=== PATIENT | female | born 1980 | race Caucasian/White ===

== ENCOUNTER 2018-07-20 09:08 | Observation (INO) ==
[2018-07-20 12:05] LABS: INR 0.97; PROTIME 13.7 Seconds (11.0-16.0)
[2018-07-20 12:21] LABS: AGAP 10; ALB/GLOB RATIO 1.4; ALBUMIN 4.1 g/dL (3.5-5.0); ALKALINE PHOSPHATASE 109 U/L (32-104); BASO# 0.08 X1000 (0.0-0.2); BASO% 0.8 % (0.0-0.8); BUN 7 mg/dL (8-22); CALCIUM 9.3 mg/dL (8.8-10.2); CHLORIDE 99 mmol/L (98-107); COSMO 269; CREATININE 0.7 mg/dL (0.5-0.9); EOS# 0.16 X1000 (0.0-0.7); EOS% 1.7 % (0.0-10.0); ESTIMATED GFR > 60; GLUCOSE 86 mg/dL (70-104); GOT 13 U/L (10-30); GPT 17 U/L (10-36); LYMPH% 33.2 % (20.5-51.1); MCH 31.3 PG (27-31); MCHC 31.9 g/dL (33-37); MCV 98.2 FL (81-99); MONO# 0.49 X1000 (0.11-0.59); MONO% 5.1 % (1.7-9.3); MPV 8.8 FL (7.4-10.4); NEUT% 59.2 % (42.2-75.2); POTASSIUM 4.2 mmol/L (3.5-5.1); RBC 1.63 XMIL (4.2-5.4); RDW 19.3 % (11.5-14.5); SODIUM 136 mmol/L (136-145); TCO2 27 mmol/L (25-35); TOTAL BILIRUBIN 0.43 mg/dL (0.20-1.00); TOTAL PROTEIN 7.1 g/dL (6.3-8.3); WBC 9.63 X1000 (4.8-10.8)
[2018-07-20 12:25] LABS: HEMOGLOBIN 5.1 g/dL (12.0-16.0); PLT 1098 X1000 (130-400)
[2018-07-20] MEDS ORDERED: PEPCID IV ONE (12:30)
[2018-07-20] MEDS ORDERED: ATIVAN IV ONE (12:30)
[2018-07-20] MEDS ORDERED: TYLENOL PO ONE (12:30)
[2018-07-20 12:32] LABS: EOS 2 % (1-10); LYMPHS 30 % (21-51); MONO 2 % (1-9); SEGS 66 % (42-75)
[2018-07-20 12:47] LABS: FREE T4 0.95 ng/dL (0.93-1.70); TSH 1.54 uIUmL (0.27-4.20)
[2018-07-20 12:50] LABS: RETIC% 0.17 % (0.8-2.1)
[2018-07-20] MEDS ORDERED: GAMUNEX C IV ONE (13:00)
[2018-07-20] MEDS ORDERED: DILUENT IV ONE (13:00)
[2018-07-20 14:00] LABS: TIBC 226 ug/dL; TOTAL IRON 211 ug/dL (49-151); UNBOUND IRON 15 ug/dL (112-346)
[2018-07-20 14:01] LABS: IRON SATURATION 98 %
--- NOTE | 2018-07-20 14:11 | HISTORY AND PHYSICAL ---
ONCOLOGIST: Grey Reyna MD. CHIEF COMPLAINT: Fatigue and anemia. HISTORY OF PRESENT ILLNESS: Ms. Rajan is a 38-year-old female with a history of hypertension, hyperlipidemia, and anemia and thrombocytosis possibly secondary to parvovirus per the patient's report. She is followed by Dr. Reyna and has been getting blood transfusions and IVIG transfusions over the past 8 months. She comes in today with malaise and anemia with a hemoglobin of 5.1 and a platelet count of 1098. She is scheduled for IVIG transfusion as well as blood transfusion. Her only complaints are dyspnea on exertion as well as some sinus drainage, she reports being on 3 different rounds of antibiotics for a sinus infection over the past few weeks. She is hemodynamically stable and will be admitted for further treatment and evaluation. PAST MEDICAL HISTORY: 1. Chronic anemia as well as thrombocytosis believed to be secondary to parvovirus per patient report, she is followed by Dr. Reyna and has had a bone marrow biopsy that did not show any suspicion for myeloproliferative disease or malignancy. 2. History of colon cancer status post resection. 3. Hypertension. 4. Hyperlipidemia. 5. Nicotine dependence. 6. Anxiety and depression. PAST SURGICAL HISTORY: She has had a hysterectomy, partial colon resection, bone marrow biopsy, right shoulder surgery. SOCIAL HISTORY: She smokes half a pack a day. She drinks socially. Denies illicit drug use. She is single, does not have any children. She is currently employed at a local [employer]. FAMILY HISTORY: Both parents alive, both with high blood pressure, diabetes. REVIEW OF SYSTEMS: A 14-point review of systems obtained and found to be negative with the exception of the HPI. ALLERGIES: Ant bites. HOME MEDICATIONS: 1. Avapro 150 mg at bedtime. 2. B12 2500 mcg sublingual daily. 3. Cymbalta 60 mg b.i.d. 4. Azelastine fluticasone nasal spray 2 sprays nasally b.i.d. 5. Lipitor 20 mg daily. 6. Toprol XL 25 mg p.o. b.i.d. 7. Vitamin C 1000 mg p.o. daily. PHYSICAL EXAMINATION: VITAL SIGNS: Blood pressure is 127/71, heart rate is 90, respiratory rate 16, O2 saturation 99% on room air, temperature is 99.1. GENERAL: This is a well-developed well-nourished female lying the hospital bed in no acute distress. NEUROLOGICAL: Awake, alert, and oriented. Follows command without focal deficits. HEENT: Head is atraumatic and normocephalic. Her pupils are equal, round, and reactive to light. Oral mucosa is moist. NECK: Trachea is midline. There is no JVD. CHEST: Clear to auscultation. CARDIOVASCULAR: Regular rate and rhythm. S1 and S2 is noted. There are no murmurs. GASTROINTESTINAL: Soft, nondistended, nontender. Bowel sounds positive. EXTREMITIES: Without edema, clubbing, or cyanosis. Pulses 2+ bilaterally. DIAGNOSTIC DATA: WBC 9.63, hemoglobin 5.1, hematocrit 16, platelet count 1098. INR 0.97. Sodium 136, potassium 4.2, chloride 99, CO2 27, anion gap 10, BUN 7, creatinine 0.7, glucose 86, calcium 9.3, magnesium 2. LFTs negative. Alkaline phosphatase 109. Protein 7.1. Albumin 4.1. ASSESSMENT AND PLAN: 1. Severe symptomatic Anemia and thrombocytosis: She will be getting IVIG and blood transfusion per Dr. Reyna. Will monitor her response and check a CBC in the morning. 2. Dyspnea: Likely a combination of anemia and nicotine use. We will check chest x-ray, EKG, and monitor her on telemetry. She denies any chest pain. 3. Sinus infection. The patient reports sinus drainage and stuffiness. Will continue her home medications, hold off on any antibiotics. She reports of being on multiple rounds of antibiotics. Chest x-ray is pending as well. 4. Hypertension, stable. Continue home medications. 5. Anxiety and depression: Stable. Continue home medications. 6. Hyperlipidemia: Stable. Continue home medications. 7. Nicotine dependence: We have advised the patient strongly against the use of nicotine products. Will provide a nicotine patch, continue cessation education. 8. Deep venous thrombosis prophylaxis not indicated. She is a low risk and ambulatory. Dictated by VALERI Massey for Orion Cotton MD cc: VALERI Massey MD Sammy Becdach, MD I agree with most components of history, physical, assessment and plan. A separate addendum has been dictated. EILEEN
[2018-07-20] MEDS ORDERED: NS 500 ML IV SCH (15:15)
--- NOTE | 2018-07-20 15:50 | HISTORY AND PHYSICAL ---
I agree with most components of history, physical, assessment, and plan. I went to bedside, evaluated the patient by myself. 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 SUBJECTIVE: Patient is feeling very weak. Denies any chest pain, shortness of breath at rest, or abdominal pain. She denies noticing any blood in the stool. We discussed about getting further infectious workup, including hepatitis and HIV and she is in agreement. We discussed about her clinical condition, possible differential, and answered all of her questions. She also has past history of premature ovarian failure. VITALS: Currently, temperature 99.1 degrees, pulse 90, respiratory rate 16, blood pressure 127/71, saturating 98% on room air. PHYSICAL EXAMINATION: HEENT: The patient has oral and conjunctival pallor. CARDIOVASCULAR: She appears tachycardic with heart rate 96 per minute. There is a systolic flow murmur at base of the heart without any radiation. LUNGS: Air entry bilaterally equal. No wheeze, rhonchi, or crackles. ABDOMEN: Soft, nontender. No hepatosplenomegaly. EXTREMITIES: She has bilateral lower extremity edema extending up to mid oneill levels. LABORATORY DATA: Labs are significant for hemoglobin of 5.1, platelet count of 1098, and reticulocyte count of 0.17. Normal kidney function. Iron studies suggestive of no iron deficiency. ASSESSMENT: 1. 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 2. History of bleeding colonic polyps status post polypectomy. Turned out to be stage III colon cancer. Did not require any colectomy or radiation or chemotherapy. 3. Positive direct antiglobulin test. Plan: I will transfuse patient 3 units as suggested by Hematology. We will keep a close eye over her breathing status. She also has hemoglobin deficiency for which hematology has ordered immunoglobulins. 4. Other: History of hyperlipidemia, chronic pain, essential hypertension. I will continue home medications. Plan of care discussed with the patient. All of her questions have been answered . cc: Orion Cotton MD
[2018-07-20] MEDS: NICODERM PATCH TD SCH (18:30)
--- NOTE | 2018-07-20 18:55 | Diag Imaging Result Doc PS360 ---
EXAM: CHEST-PORTABLE 07/20/2018 HISTORY: dyspnea TECHNIQUE: AP portable at 1848 COMMENT: There are no previous studies. There is no evidence of focal pulmonary opacity and the heart and pulmonary vascularity are within normal limits. IMPRESSION: No evidence of acute disease. Electronically signed by Phillip Jay 07/20/2018 6:53 PM
[2018-07-20] MEDS ORDERED: AVAPRO PO SCH (21:00)
[2018-07-20] MEDS: CYMBALTA PO SCH (21:15)
[2018-07-20] MEDS: TOPROL XL PO SCH (21:15)
[2018-07-20] MEDS: PATIENT'S OWN MED NAS SCH (21:18)
[2018-07-21 03:58] LABS: HIV ANTIBODY SCREEN SEE COMMENTS
[2018-07-21] MEDS ORDERED: NS 500 ML ONE (05:54)
[2018-07-21] MEDS: CYMBALTA PO SCH (08:57)
[2018-07-21] MEDS: TOPROL XL PO SCH (08:57)
[2018-07-21] MEDS: NICODERM PATCH TD SCH (08:57)
[2018-07-21] MEDS: PATIENT'S OWN MED NAS SCH (08:58)
[2018-07-21] MEDS ORDERED: LIPITOR PO SCH (09:00)
[2018-07-21] MEDS ORDERED: VITAMIN C PO SCH (09:00)
[2018-07-21] MEDS ORDERED: NORCO-10 PO PRN (11:37)
[2018-07-21] MEDS ORDERED: VITAMIN B-12 SL SCH (11:45)
[2018-07-21 12:47] LABS: HEPATITIS PROFILE ACUTE SEE COMMENTS
[2018-07-21 12:48] LABS: BASO# 0.08 X1000 (0.0-0.2); BASO% 0.8 % (0.0-0.8); EOS# 0.21 X1000 (0.0-0.7); EOS% 2.1 % (0.0-10.0); HEMATOCRIT 21.3 % (37.0-47.0); HEMOGLOBIN 6.9 g/dL (12.0-16.0); IMM GRAN# 0.03 X1000 (0.0-0.04); IMM GRAN% 0.3 % (0.0-0.5); LYMPH# 2.11 X1000 (1.2-3.4); LYMPH% 21.2 % (20.5-51.1); MCH 31.1 PG (27-31); MCHC 32.4 g/dL (33-37); MCV 95.9 FL (81-99); MONO# 0.88 X1000 (0.11-0.59); MONO% 8.8 % (1.7-9.3); MPV 8.7 FL (7.4-10.4); NEUT# 6.66 X1000 (1.4-6.5); NEUT% 66.8 % (42.2-75.2); PLT 899 X1000 (130-400); RBC 2.22 XMIL (4.2-5.4); RDW 18.2 % (11.5-14.5); WBC 9.97 X1000 (4.8-10.8)
[2018-07-21 13:16] LABS: AGAP 7; ALB/GLOB RATIO 0.8; ALBUMIN 3.5 g/dL (3.5-5.0); ALKALINE PHOSPHATASE 91 U/L (32-104); BUN 11 mg/dL (8-22); CALCIUM 8.5 mg/dL (8.8-10.2); CHLORIDE 100 mmol/L (98-107); COSMO 265; CREATININE 0.7 mg/dL (0.5-0.9); ESTIMATED GFR > 60; GLUCOSE 87 mg/dL (70-104); GOT 10 U/L (10-30); GPT 12 U/L (10-36); MAGNESIUM 1.9 mg/dL (1.5-2.7); POTASSIUM 3.9 mmol/L (3.5-5.1); SODIUM 133 mmol/L (136-145); TCO2 26 mmol/L (25-35); TOTAL BILIRUBIN 0.52 mg/dL (0.20-1.00)
[2018-07-21 13:20] LABS: EOS 2 % (1-10); LYMPHS 25 % (21-51); MONO 9 % (1-9); OVALOCYTES OCCASIONAL; SEGS 62 % (42-75)
[2018-07-21 13:23] LABS: STOMATOCYTES 1+
[2018-07-21 15:32] VITALS: BP 115/51
--- NOTE | 2018-07-22 08:27 | DISCHARGE SUMMARY ---
ADMISSION DATE: 07/20/2018 DISCHARGE DATE: 07/21/2018 DISCHARGE DIAGNOSES: 1. Severe symptomatic anemia. 2. 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 3. Thrombocytosis. OTHER DIAGNOSES: 1. History of bleeding colonic polyp status post polypectomy in the past which turned out to be a stage III colon cancer which did not require any colectomy or radiation or chemotherapy as per the patient. 2. History of recurrent severe anemia requiring multiple blood transfusion outpatient settings, thought to be secondary to parvovirus B19 infection as the bone marrow had decreased erythroblastic population. It was hypocellular, though it had increased number of megakaryocyte. 3. Positive direct antiglobulin test in the setting of multiple blood transfusions. 4. History of essential hypertension. 5. History of hyperlipidemia. 6. History of nicotine and tobacco abuse. 7. History of anxiety and depression. DISCHARGE MEDICATIONS: 1. Irbesartan 150 mg at nighttime. 2. Vitamin B12, 5000 mcg 25 mcg sublingual daily. 3. Duloxetine 60 mg b.i.d. as the last day and fluticasone 23 g spray 2 spray nasal b.i.d. 4. Hydrocodone acetaminophen 10 mg 325 mg 1 tablet p.o. b.i.d. p.r.n. 5. Atorvastatin 20 mg daily. 6. Metoprolol 25 mg b.i.d. 7. Ascorbic acid 1000 mg p.o. daily. PHYSICAL EXAMINATION: Vital signs: At the time of discharge, temperature 99.3 degrees, pulse 88, respiratory rate 16, blood pressure 115/51, saturating 93% on room air. General: The patient does not appear in any acute distress. Oral cavity is moist. Lungs: Air entry bilaterally equal. No wheeze, rhonchi, crackles. Cardiovascular: S1, S2 normal. No murmur, rub, or gallop. Abdomen: Soft, nontender. She has mild bilateral lower extremities edema. SIGNIFICANT LABORATORY DATA DURING HOSPITALIZATION: WBC is 9.9, her hemoglobin was 5.1 on presentation, which after 2 blood transfusion had increased to 6.9. The patient was receiving an additional 3rd unit of transfusion, her platelet count was 899,000. She had electrolytes in acceptable range with normal kidney function. IMAGING: During hospital admission, chest x-ray did not detect any acute disease. HOSPITAL COURSE SUMMARY: Ms. Rajan is a 38-year-old lady with above mentioned past medical history of severe anemia since October 2017, who had seen Dr. Reyna an outpatient and was found to have severe anemia with hemoglobin of 5.1, and she was advised to go to the hospital for getting blood transfusions. Apparently, patient was diagnosed to have severe anemia in October 2017 and multiple investigation including HIV panel, hepatitis panel were negative. 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 She since then required multiple blood transfusion about 3 or 4 times over last 9 months. Inside the hospital, she was given intravenous immunoglobulin because of immunoglobulin deficiency and 3 units of blood transfusion. Her hemoglobin trish appropriately after 2 units to 6.9. After that, she received another unit. At the end of unit, the patient was asymptomatic and deemed appropriate for discharge. The patient was advised to follow up with Dr. Reyna's in his clinic. Plan of care was discussed with the patient. All of her questions have been answered less than 30 minutes were spent in discharging the patient. cc: Orion Cotton MD
== END 2018-07-21 17:20 | disposition home or self-care (01) ==
LOC: DIRADM → SUATTDRO 09:08 → 4N 09:13
PROVIDERS: ATTEND Internal Medicine
CPT/HCPCS: 36430; 71010; 71045; 80053; 80074; 82607; 82746; 83010; 83540; 83550; 83615; 83735; 84439; 84443; 85025; 85045; 85610; 86701; 86850; 86870; 86880; 86900; 86901; 86920; 87389; A9270; J1561; J2060; J7040; P9016; S0028